=== PATIENT | male | born 1995 | race Hispanic/Latino ===

== ENCOUNTER 2023-02-26 18:43 | Emergency (ER) | payer SELFPAY ==
[~2023-02-26] VITALS: Ht 170.2 cm; Wt 81.8 kg
[2023-02-26 19:19] VITALS: BP 162/97
[2023-02-26] MEDS ORDERED: AMOXICILLIN500 MG PO (19:38)
[2023-02-26 19:40] VITALS: BP 162/97
[2023-02-26 20:01] VITALS: BP 138/99
== END 2023-02-26 20:14 | disposition home or self-care (01) | DRG 153 ==
LOC: ED 18:43
DX: H66.92 Otitis media, unspecified, left ear (principal)